=== PATIENT | female | born 1990 | race Caucasian/White ===

== ENCOUNTER 2017-07-14 11:18 | Emergency (ER) | payer MEDICAID ==
[2017-07-14 11:24] VITALS: BP 114/67
[2017-07-14] MEDS ORDERED: METOCLOPRAMIDE HCL ORAL SOLN 10 MG/10 ML UDCUP PO ONE (11:31)
[2017-07-14] MEDS ORDERED: ACETAMINOPHEN 325 MG TABLET PO ONE (11:31)
--- NOTE | 2017-07-14 11:36 | ER Document Report ---
ED Medical Screen (RME) - General Chief Complaint: Flank Pain Stated Complaint: RIGHT SIDE FLANK PAIN Time Seen by Provider: 07/14/17 11:29 Mode of Arrival: Ambulatory Information source: Patient TRAVEL OUTSIDE OF THE [place] IN LAST 30 DAYS: No - HPI Patient complains to provider of: Flank pain Onset: Yesterday Notes: 07/14/17 11:35 Patient is a 26-year-old female who is approximately 13 weeks , presenting to the emergency room today complaining of right flank pain that started yesterday evening - Related Data Allergies/Adverse Reactions: No Known Drug Allergies Allergy (Intermediate, Verified 07/14/17 11:23) Past Medical History - Past Medical History Cardiac Medical History: Denies: Hx Coronary Artery Disease, Hx Heart Attack, Hx Hypertension Pulmonary Medical History: Reports: Hx Bronchitis Denies: Hx Asthma, Hx COPD, Hx Pneumonia Neurological Medical History: Denies: Hx Cerebrovascular Accident, Hx Seizures Renal/ Medical History: Denies: Hx Peritoneal Dialysis Musculoskeltal Medical History: Denies Hx Arthritis Past Surgical History: Reports: Hx Section - 2x - Immunizations Immunizations up to date: Yes Hx Diphtheria, Pertussis, Tetanus Vaccination: No - 11/06/13 Physical Exam - Vital signs Vitals: Temp Pulse Resp BP Pulse Ox 98.4 F 74 20 114/67 100 07/14/17 11:23 07/14/17 11:23 07/14/17 11:23 07/14/17 11:23 07/14/17 11:23 Course - Vital Signs Vital signs: Temp Pulse Resp BP Pulse Ox 98.4 F 74 20 114/67 100 07/14/17 11:23 07/14/17 11:23 07/14/17 11:23 07/14/17 11:23 07/14/17 11:23
[2017-07-14 12:09] LABS: ABSOLUTE EOSINOPHILS # (AUTO) 0.2 10^3/uL (0.0-0.6); ABSOLUTE LYMPHOCYTES (AUTO) 1.7 10^3/uL (0.5-4.7); ABSOLUTE MONOCYTES (AUTO) 0.6 10^3/uL (0.1-1.4); ABSOLUTE NEUT (AUTO) 8.9 10^3/uL (1.7-8.2); BASOPHILS % (AUTO) 0.4 % (0-2); EOSINOPHILS % (AUTO) 1.7 % (0-6); HEMATOCRIT 40.8 % (36.0-47.0); HEMOGLOBIN 14.1 g/dL (12.0-15.5); HGB HCT DIFFERENCE 1.5; LYMPHOCYTES % (AUTO) 14.8 % (13-45); MEAN CORPUSCULAR HEMOGLOBIN 29.9 pg (27.0-33.4); MEAN CORPUSCULAR HGB CONC 34.6 g/dL (32.0-36.0); MEAN CORPUSCULAR VOLUME 87 fl (80-97); MONOCYTES % (AUTO) 5.3 % (3-13); RED BLOOD COUNT 4.71 10^6/uL (3.72-5.28); RED CELL DISTRIBUTION WIDTH 14.2 % (11.5-14.0); SEGMENTED NEUTROPHILS % (AUTO) 77.8 % (42-78); WHITE BLOOD COUNT 11.4 10^3/uL (4.0-10.5)
--- NOTE | 2017-07-14 12:10 | ER Document Report ---
ED General - General Chief Complaint: Flank Pain Stated Complaint: RIGHT SIDE FLANK PAIN Time Seen by Provider: 07/14/17 11:29 Mode of Arrival: Ambulatory Information source: Patient TRAVEL OUTSIDE OF THE [place] IN LAST 30 DAYS: No - HPI Onset: Yesterday Onset/Duration: Gradual Quality of pain: Achy Severity: Mild Pain Level: 2 Associated symptoms: Nausea. denies: Allergy/hay fever, Body/muscle aches, Chest pain, Chills, Nonproductive cough, Productive cough, Diarrhea, Drooling, Earache, Fever, Headache, Hoarseness, Hurts to breath, Leg swelling, Vomiting, Rhinnorhea, Sinus pain/drainage, Shortness of breath, Slow to respond, Sore throat, Sweating, Weakness Exacerbated by: Movement Relieved by: Remaining still Similar symptoms previously: No Recently seen / treated by doctor: No Notes: Patient arrives with complaints of right-sided back pain. The patient is approximately 13 weeks . She is a with 2 prior miscarriages. Patient states that she has had an ultrasound showing that she has an intrauterine and states that there is been no complications. She states that she was helping a friend move last evening when she started to have some right sided low back pain. The pain radiates around to the right side. The pain is worse with movement and touch, it is better with rest. She denies any traumatic injury or fall. She denies any fever. She denies any dysuria or hematuria. No rash. She does complain of nausea which she has had throughout the , this has not worsened. She denies any chest pain or shortness of breath. No numbness, tingling, weakness. No bowel or bladder dysfunction. No IV drug use. No blood thinners. She denies any vaginal bleeding or other complaints at this time. - Related Data Allergies/Adverse Reactions: No Known Drug Allergies Allergy (Intermediate, Verified 07/14/17 11:23) Past Medical History - General Information source: Patient - Social History Smoking Status: Unknown if Ever Smoked Family History: Reviewed & Not Pertinent - Past Medical History Cardiac Medical History: Denies: Hx Coronary Artery Disease, Hx Heart Attack, Hx Hypertension Pulmonary Medical History: Reports: Hx Bronchitis Denies: Hx Asthma, Hx COPD, Hx Pneumonia Neurological Medical History: Denies: Hx Cerebrovascular Accident, Hx Seizures Renal/ Medical History: Denies: Hx Peritoneal Dialysis Musculoskeltal Medical History: Denies Hx Arthritis Past Surgical History: Reports: Hx Section - 2x - Immunizations Immunizations up to date: Yes Hx Diphtheria, Pertussis, Tetanus Vaccination: No - 11/06/13 Review of Systems - Review of Systems -: Yes All other systems reviewed and negative Physical Exam - Vital signs Vitals: Temp Pulse Resp BP Pulse Ox 98.4 F 74 20 114/67 100 07/14/17 11:23 07/14/17 11:23 07/14/17 11:23 07/14/17 11:23 07/14/17 11:23 - Notes Notes: GENERAL: alert, cooperative, nontoxic, no distress. HEAD: normocephalic, atraumatic EYES: conjunctiva pink without discharge, no external redness or swelling. EARS: no external swelling, no external redness NOSE: atraumatic, no external swelling MOUTH/THROAT: mucous membranes moist and pink, posterior pharynx without erythema, swelling, exudate. No trismus or drooling. NECK: soft, supple, full range of motion, no meningismus. CHEST: no distress, lungs clear and equal throughout. No wheezing, rales, rhonchi. CARDIAC: regular rate and rhythm, no murmur, normal capillary refill, normal pulses. No peripheral edema noted. ABDOMEN: soft, nontender, no pusatile mass. BACK: Tenderness to palpation of the right lumbar paraspinal muscles with mild muscle spasm noted. No CVA tenderness. EXTREMITIES: full range of motion of all extremities. No redness, no swelling. NEURO: alert and oriented -3, no focal deficits, full range of motion of all extremities. 5 out of 5 flexion and extension of the lower extremities bilaterally. Patellar and Achilles deep tendon reflexes are +2 bilaterally. Normal sensation with no saddle anesthesia. PYSCH: appropriate mood, affect. Patient is cooperative. SKIN: pink, warm, dry, no rash. Course - Re-evaluation Re-evalutation: 07/14/17 12:36 Patient is nontoxic appearing with stable vitals. The patient is 13 weeks . She started having right-sided low back pain after helping a friend move yesterday. The pain is worse with movement. It is reproducible with palpation of the lumbar paraspinal muscles. There is no flank pain or CVA tenderness. She has no abdominal tenderness on exam at this time. She has had nausea in the mornings with her but this has not worsened. She has had no vomiting or diarrhea. No fever. She has no vaginal bleeding or complaints at this time. Patient had unremarkable labs aside from a very mild leukocytosis. Her urine appears unremarkable with no signs of infection or blood. This point I believe an intra-abdominal process is very unlikely as the patient has reproducible back pain is worse with movement. She has no sign or risk of cauda equina or epidural abscess or bleed. This point the patient can be discharged home with instructions to take Tylenol as needed for pain. Follow -up with her HRIS COORDINATOR in the next 2 days for reevaluation. Follow-up sooner for increased pain, fever, abdominal pain, vaginal bleeding or discharge, or any further concerns. - Vital Signs Vital signs: Temp Pulse Resp BP Pulse Ox 98.4 F 74 20 114/67 100 07/14/17 11:23 07/14/17 11:23 07/14/17 11:23 07/14/17 11:23 07/14/17 11:23 - Laboratory Result Diagrams: 07/14/17 11:55 07/14/17 11:55 Laboratory results interpreted by me: 07/14/17 07/14/17 11:50 11:55 WBC 11.4 H RDW 14.2 H Absolute Neutrophils 8.9 H Urine Ascorbic Acid 40 H Discharge - Discharge Clinical Impression: Acute lumbar myofascial strain Qualifiers: Encounter type: initial encounter Qualified Code(s): S39.012A - Strain of muscle, fascia and tendon of lower back, initial encounter Condition: Stable Disposition: HOME, SELF-CARE Instructions: Low Back Pain ([facility]) Additional Instructions: Take Tylenol as needed for pain. Follow-up with your HRIS COORDINATOR in the next 2 days for reevaluation. Follow-up sooner for increased pain, fever, abdominal pain, persistent vomiting, vaginal bleeding, difficulty controlling her bowels or bladder, or any further concerns.
[2017-07-14 12:21] LABS: ALANINE AMINOTRANSFERASE 32 U/L (9-52); ALBUMIN 3.9 g/dL (3.5-5.0); ALKALINE PHOSPHATASE 60 U/L (38-126); ANION GAP 10 (5-19); ASPARTATE AMINO TRANSFERASE 22 U/L (14-36); BILIRUBIN,DIRECT 0.3 mg/dL (0.0-0.4); BILIRUBIN,TOTAL 0.4 mg/dL (0.2-1.3); BLOOD UREA NITROGEN 13 mg/dL (7-20); CARBON DIOXIDE 25 mmol/L (22-30); CHLORIDE 102 mmol/L (98-107); CREATININE RESULT 0.76 mg/dL (0.52-1.25); GLUCOSE 86 mg/dL (75-110); LIPASE 150.2 U/L (23-300); POTASSIUM 4.7 mmol/L (3.6-5.0); SODIUM 137.1 mmol/L (137-145); TOTAL PROTEIN 7.1 g/dL (6.3-8.2)
[2017-07-14 12:24] LABS: APPEARANCE,URINE SLIGHTLY-CLOUDY; BILIRUBIN,URINE NEGATIVE (NEGATIVE); GLUCOSE, URINE NEGATIVE (NEGATIVE); KETONES,URINE NEGATIVE (NEGATIVE); LEUKOCYTE ESTERASE,URINE NEGATIVE (NEGATIVE); NITRITE,URINE NEGATIVE (NEGATIVE); PROTEIN,URINE NEGATIVE (NEGATIVE); URINE SPECIFIC GRAVITY 1.014; UROBILINOGEN,URINE NEGATIVE mg/dL (<2.0)
== END 2017-07-14 12:58 | disposition home or self-care (01) ==
LOC: ER 11:18
DX: S39.012A Strain of muscle, fascia and tendon of lower back, initial encounter (principal); R10.9 Unspecified abdominal pain; M54.9 Dorsalgia, unspecified; Z3A.13 13 weeks gestation of pregnancy; R11.0 Nausea; X58.XXXA Exposure to other specified factors, initial encounter
CPT/HCPCS: 99284; 36415; 87086; 83690; 85025; 80053; 81001; J3490 ×2

== ENCOUNTER 2017-07-20 13:54 | Emergency (ER) | payer MEDICAID ==
[2017-07-20] MEDS ORDERED: METOCLOPRAMIDE HCL INJ/PF 10 MG/2 ML SDV IV ONE ×2 (15:04→17:21)
--- NOTE | 2017-07-20 15:05 | ER Document Report ---
ED Medical Screen (RME) - General Chief Complaint: Vomiting Stated Complaint: VOMITTING Time Seen by Provider: 07/20/17 15:04 TRAVEL OUTSIDE OF THE [place] IN LAST 30 DAYS: No - HPI Notes: 07/20/17 15:05 Sent into the ER due to fever nausea vomiting dehydration by [facility] - Related Data Allergies/Adverse Reactions: No Known Drug Allergies Allergy (Intermediate, Verified 07/20/17 15:03) Past Medical History - Social History Chew tobacco use (# tins/day): No Frequency of alcohol use: None Drug Abuse: None - Past Medical History Cardiac Medical History: Denies: Hx Coronary Artery Disease, Hx Heart Attack, Hx Hypertension Pulmonary Medical History: Reports: Hx Bronchitis Denies: Hx Asthma, Hx COPD, Hx Pneumonia Neurological Medical History: Denies: Hx Cerebrovascular Accident, Hx Seizures Renal/ Medical History: Denies: Hx Peritoneal Dialysis Musculoskeltal Medical History: Denies Hx Arthritis Past Surgical History: Reports: Hx Section - 2x - Immunizations Immunizations up to date: Yes Hx Diphtheria, Pertussis, Tetanus Vaccination: No - 11/06/13 Review of Systems - Review of Systems Constitutional: No symptoms reported EENT: No symptoms reported Cardiovascular: No symptoms reported Respiratory: No symptoms reported Gastrointestinal: Nausea, Vomiting Genitourinary: No symptoms reported Female Genitourinary: No symptoms reported Musculoskeletal: No symptoms reported Skin: No symptoms reported Hematologic/Lymphatic: No symptoms reported Neurological/Psychological: No symptoms reported -: Yes All other systems reviewed and negative Physical Exam - Vital signs Vitals: Temp Pulse Resp BP Pulse Ox 98.8 F 91 16 116/63 99 07/20/17 14:05 07/20/17 14:05 07/20/17 14:05 07/20/17 14:05 07/20/17 14:05 - Respiratory Respiratory status: No respiratory distress Chest status: Nontender Breath sounds: Normal Chest palpation: Normal Course - Vital Signs Vital signs: Temp Pulse Resp BP Pulse Ox 98.8 F 91 16 116/63 99 07/20/17 14:05 07/20/17 14:05 07/20/17 14:05 07/20/17 14:05 07/20/17 14:05
[2017-07-20] MEDS: NORMAL SALINE 1000 ML 1,000 ML IV PRN ×2 (15:40→16:32)
[2017-07-20 15:45] LABS: ABSOLUTE LYMPHOCYTES (AUTO) 1.6 10^3/uL (0.5-4.7); ABSOLUTE MONOCYTES (AUTO) 0.7 10^3/uL (0.1-1.4); BASOPHILS % (AUTO) 0.3 % (0-2); EOSINOPHILS % (AUTO) 0.2 % (0-6); HEMATOCRIT 40.6 % (36.0-47.0); HEMOGLOBIN 14.4 g/dL (12.0-15.5); HGB HCT DIFFERENCE 2.6; LYMPHOCYTES % (AUTO) 11.1 % (13-45); MEAN CORPUSCULAR HEMOGLOBIN 30.2 pg (27.0-33.4); MEAN CORPUSCULAR HGB CONC 35.4 g/dL (32.0-36.0); MEAN CORPUSCULAR VOLUME 85 fl (80-97); RED BLOOD COUNT 4.76 10^6/uL (3.72-5.28); RED CELL DISTRIBUTION WIDTH 14.1 % (11.5-14.0); SEGMENTED NEUTROPHILS % (AUTO) 83.4 % (42-78); WHITE BLOOD COUNT 14.4 10^3/uL (4.0-10.5)
[2017-07-20 16:12] LABS: ANION GAP 11 (5-19); BLOOD UREA NITROGEN 10 mg/dL (7-20); CALCIUM 9.6 mg/dL (8.4-10.2); CARBON DIOXIDE 26 mmol/L (22-30); CHLORIDE 99 mmol/L (98-107); CREATININE RESULT 0.74 mg/dL (0.52-1.25); GLUCOSE 96 mg/dL (75-110); POTASSIUM 4.3 mmol/L (3.6-5.0)
[2017-07-20 16:26] LABS: APPEARANCE,URINE SLIGHTLY-CLOUDY; BILIRUBIN,URINE NEGATIVE (NEGATIVE); GLUCOSE, URINE NEGATIVE (NEGATIVE); KETONES,URINE 80 mg/dL (NEGATIVE); LEUKOCYTE ESTERASE,URINE NEGATIVE (NEGATIVE); NITRITE,URINE NEGATIVE (NEGATIVE); PROTEIN,URINE 30 mg/dL (NEGATIVE); URINE SPECIFIC GRAVITY 1.025; UROBILINOGEN,URINE NEGATIVE mg/dL (<2.0)
--- NOTE | 2017-07-20 16:50 | ER Document Report ---
ED GI/ - General Chief Complaint: Vomiting Stated Complaint: VOMITTING Time Seen by Provider: 07/20/17 15:04 Mode of Arrival: Ambulatory Information source: Patient TRAVEL OUTSIDE OF THE [place] IN LAST 30 DAYS: No - HPI Patient complains to provider of: , Vomiting Onset: Yesterday Timing/Duration: Gradual Quality of pain: Cramping Severity at maximum: Mild Severity in ED: Mild Context: Location: Epigastric, LUQ, RUQ Vaginal bleeding (Compared to normal period): None Menstrual period history: - 14 WKS Sexual history: Active Associated symptoms: Nausea, Vomiting. denies: Chills, Diarrhea, Dysuria, Fever Exacerbated by: Food Relieved by: Denies Similar symptoms previously: No Recently seen / treated by doctor: Yes - ROUTINE [facility]- [facility]ARE @ [facility] - Related Data Allergies/Adverse Reactions: No Known Drug Allergies Allergy (Intermediate, Verified 07/20/17 15:03) Past Medical History - General Information source: Patient - Social History Smoking Status: Never Smoker Chew tobacco use (# tins/day): No Frequency of alcohol use: None Drug Abuse: None Lives with: Spouse/Significant other Family History: Reviewed & Not Pertinent Patient has suicidal ideation: No Patient has homicidal ideation: No - Past Medical History Cardiac Medical History: Denies: Hx Coronary Artery Disease, Hx Heart Attack, Hx Hypertension Pulmonary Medical History: Reports: Hx Bronchitis Denies: Hx Asthma, Hx COPD, Hx Pneumonia Neurological Medical History: Denies: Hx Cerebrovascular Accident, Hx Seizures Renal/ Medical History: Denies: Hx Peritoneal Dialysis Musculoskeltal Medical History: Denies Hx Arthritis Past Surgical History: Reports: Hx Section - 2x - Immunizations Immunizations up to date: Yes Hx Diphtheria, Pertussis, Tetanus Vaccination: No - 11/06/13 Review of Systems - Review of Systems Constitutional: No symptoms reported EENT: No symptoms reported Cardiovascular: No symptoms reported Respiratory: No symptoms reported Gastrointestinal: See HPI Genitourinary: No symptoms reported Female Genitourinary: Musculoskeletal: No symptoms reported Skin: No symptoms reported Neurological/Psychological: No symptoms reported Physical Exam - Vital signs Vitals: Temp Pulse Resp BP Pulse Ox 98.8 F 91 16 116/63 99 07/20/17 14:05 07/20/17 14:05 07/20/17 14:05 07/20/17 14:05 07/20/17 14:05 Interpretation: Normal - General General appearance: Appears well, Alert In distress: None - HEENT Head: Normocephalic Eyes: Normal Conjunctiva: Normal Ears: Normal Nasal: Normal Mouth/Lips: Normal Mucous membranes: Dry - MILDLY Pharynx: Normal Neck: Normal, Supple - Respiratory Respiratory status: No respiratory distress Breath sounds: Normal - Cardiovascular Rhythm: Regular Heart sounds: Normal auscultation Murmur: No - Abdominal Inspection: Gravid female Bowel sounds: Hypoactive - Extremities General upper extremity: Normal inspection General lower extremity: Normal inspection - Neurological Neuro grossly intact: Yes Cognition: Normal Orientation: AAOx4 - Psychological Associated symptoms: Normal affect, Normal mood - Skin Skin Temperature: Warm Skin Moisture: Dry Skin Color: Normal Skin Turgor: Elastic Course - Re-evaluation Re-evalutation: 07/20/17 17:20 Patient reports nausea is much improved, although not entirely gone. Results of laboratory studies discussed. - Vital Signs Vital signs: Temp Pulse Resp BP Pulse Ox 98.8 F 91 16 116/63 99 07/20/17 14:05 07/20/17 14:05 07/20/17 14:05 07/20/17 14:05 07/20/17 14:05 - Laboratory Result Diagrams: 07/20/17 15:35 07/20/17 15:35 Laboratory results interpreted by me: 07/20/17 07/20/17 07/20/17 15:35 15:35 15:35 WBC 14.4 H RDW 14.1 H Seg Neutrophils % 83.4 H Lymphocytes % 11.1 L Absolute Neutrophils 12.0 H Sodium 136.0 L Beta HCG, Quant 258319.00 H Urine Protein 30 H Urine Ketones 80 H Urine Ascorbic Acid 40 H Discharge - Discharge Clinical Impression: Hyperemesis gravidarum Condition: Stable Disposition: HOME, SELF-CARE Instructions: Antinausea Medication ([facility]), Hyperemesis Gravidarum ([facility]), Intravenous (IV) Fluids ([facility]), Reglan ([facility]) Additional Instructions: REST, DRINK PLENTY OF FLUIDS. YOU MAY TAKE REGLAN IF NEEDED FOR NAUSEA CONTROL, BUT TRY NON-DRUG STRATEGIES FIRST. FOLLOW UP WITH YOUR OB. DOCTOR NEEDED. RETURN TO E.R. IF PROBLEMS. Prescriptions: Metoclopramide HCl 10 mg PO Q6HP PRN #14 tablet PRN Reason: For Nausea/Vomiting Referrals: VICTORINA CORDOBA MD [Primary Care Provider] - Follow up as needed
[2017-07-20 17:45] VITALS: BP 94/58
== END 2017-07-20 17:43 | disposition home or self-care (01) ==
LOC: ER 13:54
DX: O21.0 Mild hyperemesis gravidarum (principal); O26.892 Other specified pregnancy related conditions, second trimester; R10.11 Right upper quadrant pain; R10.12 Left upper quadrant pain; R10.13 Epigastric pain; Z3A.14 14 weeks gestation of pregnancy
CPT/HCPCS: 96376; 99283; 96361; 96374; 36415; 84702; 83690; 85025; 80048; 81001; J2765; J7030

== ENCOUNTER 2018-01-09 05:00 | Inpatient (IN) | payer MEDICAID ==
[2018-01-08 10:39] LABS: ABSOLUTE EOSINOPHILS # (AUTO) 0.1 10^3/uL (0.0-0.6); ABSOLUTE LYMPHOCYTES (AUTO) 2.2 10^3/uL (0.5-4.7); ABSOLUTE MONOCYTES (AUTO) 0.6 10^3/uL (0.1-1.4); ABSOLUTE NEUT (AUTO) 6.5 10^3/uL (1.7-8.2); BASOPHILS % (AUTO) 0.2 % (0-2); EOSINOPHILS % (AUTO) 1.2 % (0-6); HEMOGLOBIN 13.8 g/dL (12.0-15.5); LYMPHOCYTES % (AUTO) 23.3 % (13-45); MEAN CORPUSCULAR HEMOGLOBIN 29.5 pg (27.0-33.4); MEAN CORPUSCULAR HGB CONC 34.5 g/dL (32.0-36.0); MEAN CORPUSCULAR VOLUME 86 fl (80-97); MONOCYTES % (AUTO) 6.3 % (3-13); PLATELET COUNT 232 10^3/uL (150-450); RED BLOOD COUNT 4.68 10^6/uL (3.72-5.28); RED CELL DISTRIBUTION WIDTH 13.3 % (11.5-14.0); TOTAL CELLS COUNTED % (AUTO) 100 %; WHITE BLOOD COUNT 9.5 10^3/uL (4.0-10.5)
[2018-01-08 10:48] LABS: APPEARANCE,URINE SLIGHTLY-CLOUDY; BILIRUBIN,URINE NEGATIVE (NEGATIVE); COLOR,URINE YELLOW; GLUCOSE, URINE NEGATIVE (NEGATIVE); KETONES,URINE NEGATIVE (NEGATIVE); LEUKOCYTE ESTERASE,URINE NEGATIVE (NEGATIVE); NITRITE,URINE NEGATIVE (NEGATIVE); PROTEIN,URINE NEGATIVE (NEGATIVE); URINE SPECIFIC GRAVITY 1.014; UROBILINOGEN,URINE NEGATIVE mg/dL (<2.0)
[2018-01-08 11:02] LABS: URINE AMPHETAMINES SCREEN NEGATIVE; URINE BARBITURATES SCREEN NEGATIVE; URINE BENZODIAZEPINES SCREEN NEGATIVE; URINE COCAINE SCREEN NEGATIVE; URINE MARIJUANA (THC) SCREEN NEGATIVE; URINE METHADONE SCREEN NEGATIVE; URINE PHENCYCLIDINE SCREEN NEGATIVE
[~2018-01-09 05:00] MED LIST: CEFAZOLIN 1 GM/D5W RTU 1 GM/50 ML RTUPB IV PRN; LACTATED RINGERS 1000 ML IV PRN; LIDOCAINE 0.5% INJ-PF (5 MG/ML) 50 ML SDV SUBCUT PRN; RINGERS SOLUTION,LACTATED 1,000 ML IV PRN
[2018-01-09] MEDS ORDERED: CEFAZOLIN 1 GM/D5W RTU 1 GM/50 ML RTUPB IV ONE (05:43)
[2018-01-09] MEDS ORDERED: OXYTOCIN 10 UNIT/ML VIAL ONE (07:24)
[2018-01-09] MEDS ORDERED: MIDAZOLAM 2 MG/2 ML INJ ONE (07:25)
[2018-01-09] MEDS ORDERED: PROPOFOL INJ 200 MG/20 ML VIAL IV ONE (07:25)
[2018-01-09] MEDS ORDERED: FENTANYL CITRATE INJ/PF 100 MCG/2 ML AMPUL ONE (07:25)
[2018-01-09] MEDS ORDERED: EPHEDRINE SULFATE INJ 50 MG/1 ML AMPULE ONE (07:25)
[2018-01-09] MEDS ORDERED: BUPIVACAINE HCL/DEX-WATER/PF 15 MG/2 ML AMPULE ONE (07:28)
[2018-01-09] MEDS ORDERED: EPINEPHRINE INJ/PF 1 MG/1 ML AMPULE ONE (07:28)
[2018-01-09] MEDS ORDERED: MEASLES,MUMPS&RUBELLA VACC/PF 0.5 ML VIAL SUBCUT PRN (08:04)
[2018-01-09] MEDS ORDERED: DIPH/PERTUSS(ACELL)/TETANUS VAC/PF 0.5 ML SYR (>=10YO) IM PRN (08:04)
[2018-01-09] MEDS ORDERED: OXYTOCIN/NORMAL SALINE 20 UNIT/1,000 ML RTUINJ IV PRN (08:04)
[2018-01-09] MEDS ORDERED: ACETAMINOPHEN 325 MG TABLET PO PRN (08:04)
[2018-01-09] MEDS ORDERED: RINGERS SOLUTION,LACTATED 1,000 ML IV PRN (08:04)
[2018-01-09] MEDS ORDERED: OXYCODONE-ACETAMINOPHEN 5-325 MG TABLET PO PRN (08:04)
[2018-01-09] MEDS ORDERED: SIMETHICONE 80 MG TAB.CHEW PO PRN (08:04)
[2018-01-09] MEDS ORDERED: PROMETHAZINE HCL INJ 25 MG/1 ML VIAL IV PRN ×2 (08:04→08:27)
[2018-01-09] MEDS ORDERED: DIPHENHYDRAMINE HCL 50 MG/ML VIAL IV PRN (08:27)
[2018-01-09] MEDS ORDERED: MEPERIDINE HCL/PF INJ 25 MG/1 ML DISP.SYRIN IV PRN (08:27)
[2018-01-09] MEDS ORDERED: FENTANYL CITRATE INJ/PF 100 MCG/2 ML AMPUL IV PRN ×3 (08:27)
[2018-01-09] MEDS ORDERED: ONDANSETRON HCL INJ/PF 4 MG/2 ML SDV IV PRN (08:27)
--- NOTE | 2018-01-09 09:10 | Operative Report ---
Operative Report DATE OF SURGERY: 01/09/18 PREOPERATIVE DIAGNOSIS: Patient desires repeat to prevent you risk of uterine rupture POSTOPERATIVE DIAGNOSIS: Same plus peritoneal window present at OPERATION: Repeat via low transverse uterine incision SURGEON: ANNA SHIPLEY ANESTHESIA: Spinal TISSUE REMOVED OR ALTERED: Placenta COMPLICATIONS: None ESTIMATED BLOOD LOSS: 250 cc INTRAOPERATIVE FINDINGS: Viable male with Apgars of 8 and 9 8 lbs. 2 oz. crying at delivery. Also peritoneal window is present with some rather dense uterine adhesions to the anterior abdominal wall. I would recommend that she not have further pregnancies or at least wait several years. PROCEDURE: Patient was taken to the OR and placed in supine position after her spinal anesthesia. She is prepared and draped in sterile fashion. Hurtado was placed for drainage of the bladder. Low transverse incision was made and carried down the level of the fascia. The fascial incision was made with knife and extended bilaterally with curved Duarte scissors. The fascia was off the rectus muscles using sharp and blunt dissection. The rectus muscles are in the midline. The peritoneum was entered without incident. Bladder blade was placed and the low uterine segment was identified. A peritoneal window was noted. A low transverse uterine incision was made with the csafe knife and extended with fingertips. The baby was delivered with some fundal pressure. Mouth and nose were suctioned free. The cord is doubly clamped and cut. Baby is passed off to the slicing machine operator in attendance. The placenta was manually extracted with trailing membranes. The uterus was externalized wrapped in a moist lap sponge. Uterine contents wiped free. Uterus was closed with a running locking layer of 0 chromic suture using the second layer to imbricate the first completing a double layer closure of the uterus. The serosa was closed with a running 2-0 chromic stitch. The pelvis was irrigated and suctioned free of fluid the uterus was replaced in the abdomen. The abdominal wall peritoneum was closed with running 2-0 chromic stitch. Fascia was closed with a running 0 Vicryl in 2 segments. Dayana's layer was brought together with 0 plain gut stitch and the skin was closed with running subcuticular 4-0 undyed Vicryl stitch. The wound was dressed mother and baby did well.
[2018-01-09] MEDS ORDERED: KETOROLAC TROMETHAMINE INJ/PF 30 MG/1 ML SDV ONE (10:01)
[2018-01-09] MEDS ORDERED: ACETAMINOPHEN 100 ML IV ONE (10:02)
[2018-01-09] MEDS: KETOROLAC TROMETHAMINE INJ/PF 30 MG/1 ML SDV IV SCH ×2 (10:04→21:19)
[2018-01-09] MEDS ORDERED: HYDROMORPHONE HCL INJ/PF 2 MG/ML AMPULE ONE (10:28)
[2018-01-09] MEDS: HYDROMORPHONE HCL INJ/PF 2 MG/ML AMPULE IV PRN ×2 (10:32→17:26)
[2018-01-09] MEDS: PRENATAL VITAMIN W DHA CAPSULE PO SCH (13:50)
[2018-01-09] MEDS: DOCUSATE SODIUM 100 MG CAPSULE PO SCH ×2 (13:50→17:25)
[2018-01-09] MEDS ORDERED: PHENYLEPHRINE HCL INJ/PF 10 MG/1 ML SDV ONE (15:51)
[2018-01-09] MEDS: OXYCODONE-ACETAMINOPHEN 5-325 MG TABLET PO PRN (21:19)
[2018-01-10] MEDS: OXYCODONE-ACETAMINOPHEN 5-325 MG TABLET PO PRN ×2 (05:13→23:05)
[2018-01-10] MEDS: KETOROLAC TROMETHAMINE INJ/PF 30 MG/1 ML SDV IV SCH (05:20)
[2018-01-10 07:04] LABS: MEAN CORPUSCULAR HEMOGLOBIN 29.6 pg (27.0-33.4); MEAN CORPUSCULAR HGB CONC 34.2 g/dL (32.0-36.0); MEAN CORPUSCULAR VOLUME 86 fl (80-97); PLATELET COUNT 192 10^3/uL (150-450); RED BLOOD COUNT 3.94 10^6/uL (3.72-5.28); RED CELL DISTRIBUTION WIDTH 13.6 % (11.5-14.0); WHITE BLOOD COUNT 10.5 10^3/uL (4.0-10.5)
[2018-01-10 07:06] LABS: HEMOGLOBIN 11.7 g/dL (12.0-15.5)
--- NOTE | 2018-01-10 10:50 | PDOC PROGRESS REPORT ---
Subjective-OB Progress Note for:: 01/10/18 Physical Exam (OB) Vital Signs: Temp Pulse Resp BP Pulse Ox 98.1 F 72 16 105/59 L 100 01/10/18 07:28 01/10/18 07:28 01/10/18 07:28 01/10/18 07:28 01/10/18 07:28 Intake & Output 01/09/18 01/10/18 01/11/18 06:59 06:59 06:59 Intake Total 2100 Output Total 2426 Balance -326 - PIH/Pre-Eclampsia DTR's: 1 + Clonus: Negative Headache: Absent Epigastric Pain: No Visual Changes: No - Dressing Removed: No Incision: Dressing, Well Approximated - Lochia Lochia Amount: Scant < 10 ml Lochia Color: Rubra/Red - Abdomen Description: Tender, Soft Hernia Present: No Bowel Sounds: Normoactive Flatus Presence: Present Stool: No Fundal Description: Firm Fundal Height: u/u - u/2 Objective-Diagnostic Laboratory: 01/10/18 06:38 01/10/18 06:38 WBC 10.5 RBC 3.94 Hgb 11.7 L D Hct 34.0 L MCV 86 MCH 29.6 MCHC 34.2 RDW 13.6 Plt Count 192
[2018-01-10] MEDS: DOCUSATE SODIUM 100 MG CAPSULE PO SCH ×2 (11:34→17:34)
[2018-01-10] MEDS: PRENATAL VITAMIN W DHA CAPSULE PO SCH (11:34)
[2018-01-10] MEDS: IBUPROFEN 800 MG TABLET PO SCH ×3 (11:34→23:04)
[2018-01-11] MEDS: IBUPROFEN 800 MG TABLET PO SCH ×2 (05:35→12:39)
--- NOTE | 2018-01-11 10:14 | PDOC PROGRESS REPORT ---
Subjective-OB Progress Note for:: 01/11/18 Subjective: Sitting up in bed holding baby, talking on phone, no c/o, eating, + gas, breast and bottle, voiding, scant bleeding, eating well Physical Exam (OB) Vital Signs: Temp Pulse Resp BP Pulse Ox 98.0 F 90 20 121/63 99 01/11/18 08:00 01/11/18 08:00 01/11/18 08:00 01/11/18 08:00 01/11/18 08:00 Intake & Output 01/10/18 01/11/18 01/12/18 06:59 06:59 06:59 Intake Total 2100 1500 Output Total 2426 Balance -326 1500 - PIH/Pre-Eclampsia DTR's: 1 + Clonus: Negative Headache: Absent Epigastric Pain: No Visual Changes: No - Dressing Removed: No Incision: Dressing, Well Approximated Closure Type: Sutures - Lochia Lochia Amount: Scant < 10 ml Lochia Color: Rubra/Red - Abdomen Description: Tender, Soft Hernia Present: No Fundal Description: Firm, Midline Fundal Height: u/u - u/2 Objective-Diagnostic Laboratory: 01/10/18 06:38 Assessment and Plan(PN) - Assessment and Plan (1) Positive GBS test Is this a current diagnosis for this admission?: Yes (2) Positive test for herpes simplex virus (HSV) antibody Is this a current diagnosis for this admission?: Yes (3) Status post repeat low transverse section Is this a current diagnosis for this admission?: Yes - Time Spent with Patient Time with patient: Less than 15 minutes Medications reviewed and adjusted accordingly: Yes - Disposition Anticipated Discharge: Home Within: within 24 hours
[2018-01-11] MEDS: PRENATAL VITAMIN W DHA CAPSULE PO SCH (10:15)
[2018-01-11] MEDS: DOCUSATE SODIUM 100 MG CAPSULE PO SCH (10:15)
--- NOTE | 2018-01-11 10:31 | PDOC DISCHARGE SUMMARY ---
Final Diagnosis Discharge Date: 01/11/18 - Final Diagnosis (1) Positive GBS test Is this a current diagnosis for this admission?: Yes (2) Positive test for herpes simplex virus (HSV) antibody Is this a current diagnosis for this admission?: Yes (3) Status post repeat low transverse section Is this a current diagnosis for this admission?: Yes Discharge Data - Discharge Medication Prescriptions: Oxycodone HCl/Acetaminophen [Percocet 5-325 mg Tablet] 1 tab PO Q4HP PRN #30 tablet PRN Reason: Ibuprofen [Motrin 800 mg Tablet] 800 mg PO Q6 #30 tablet Home Medications: Pnv No.95/Ferrous Fum/Folic AC [ Vitamin Tablet] 1 each PO DAILY Ibuprofen [Motrin 800 mg Tablet] 800 mg PO Q6 #30 tablet 01/11/18 Oxycodone HCl/Acetaminophen [Percocet 5-325 mg Tablet] 1 tab PO Q4HP PRN #30 tablet 01/11/18 Gestational Age: 39 Reason(s) for Admission: Ceasarean Section-Repeat Procedures: NST, Ultrasound Intrapartum Procedure(s): : Low Cervical, Transverse - [place] Data Baby 1 Male Home with Mother: Yes Complications: No - Diagnosis Test Laboratory: Temp Pulse Resp BP Pulse Ox 98.0 F 90 20 121/63 99 01/11/18 08:00 01/11/18 08:00 01/11/18 08:00 01/11/18 08:00 01/11/18 08:00 01/08/18 01/08/18 01/10/18 10:00 10:07 06:38 RBC 4.68 3.94 Hgb 13.8 11.7 L D Hct 40.0 34.0 L Urine Opiates Screen NEGATIVE - Discharge information/Instructions Discharge Activity: Activity As Tolerated, Balance Activity w/Rest, No Lifting Over 10 Pounds, No Lifting/Push/Pulling, Pelvic Rest Discharge Diet: As Tolerated, Regular Disposition: HOME, SELF-CARE Follow up with: [facility] in: 1, Weeks
[2018-01-11 12:20] VITALS: BP 121/63
== END 2018-01-11 13:35 | disposition home or self-care (01) | DRG 766 ==
LOC: 2S 05:00 → UNDOADMIN 07:08 → 2S 07:08
PROVIDERS: ADMIT Obstetrics & Gynecology; ATTEND Obstetrics & Gynecology
PROC: 10D00Z1 Extraction of Products of Conception, Low, Open Approach (ICD-10-PCS; principal; 2018-01-09 07:45)
DX: O34.211 Maternal care for low transverse scar from previous cesarean delivery (principal); O99.824 Streptococcus B carrier state complicating childbirth; N85.8 Other specified noninflammatory disorders of uterus; O99.334 Smoking (tobacco) complicating childbirth; F17.210 Nicotine dependence, cigarettes, uncomplicated; Z3A.39 39 weeks gestation of pregnancy; Z37.0 Single live birth
CPT/HCPCS: 1961; 36415; 59025; 80307; 81001; 85025; 85027; 86850; 86900; 86901; 94799; J0131; J0171; J0690; J1170; J1885; J2250; J2370; J2550; J2590; J2704; J3010; J3490; J7120